=== PATIENT | female | born 1945 | race American Indian/Alaskan Native ===

== ENCOUNTER 2022-01-28 07:36 | Day surgery (SDC) | payer MEDICARE ==
[2022-01-28] MEDS ORDERED: ASPIRIN EC 325 MG TAB PO ONE (08:07)
[2022-01-28] MEDS ORDERED: SODIUM CHLORIDE 0.9% 500 ML 500 ML IV SCH (09:00)
[2022-01-28 09:21] LABS: Basophils % (Auto) 1.1 % (0.0-1.8); Eosinophils # (Auto) 0.3 K/mm3 (0.0-0.4); Eosinophils % (Auto) 7.6 % (0.0-4.3); Hematocrit 35.9 % (30.3-42.9); Hemoglobin 12.2 gm/dl (10.1-14.3); Lymphocytes # (Auto) 1.6 K/mm3 (1.2-5.4); Lymphocytes % (Auto) 40.8 % (13.4-35.0); Mean Corpuscular HGB Conc 34 % (30-34); Mean Corpuscular Volume 95 fl (79-97); Monocytes # (Auto) 0.4 K/mm3 (0.0-0.8); Monocytes % (Auto) 10.5 % (0.0-7.3); Platelet Count 109 K/mm3 (140-440); Red Blood Count 3.78 M/mm3 (3.65-5.03); Red Cell Distribution Width 14.2 % (13.2-15.2)
[2022-01-28 09:38] LABS: BUN/Creatinine Ratio 13; Blood Urea Nitrogen 22 mg/dL (7-17); Calcium 9.1 mg/dL (8.4-10.2); Hemolysis Index 234
[2022-01-28] MEDS ORDERED: HEPARIN 10,000 UNITS/10 ML VIAL ONE (10:56)
[2022-01-28] MEDS ORDERED: HEPARIN/NS 5000 UNIT/500ML 1,000 ML IR ONE (10:56)
--- NOTE | 2022-01-28 10:57 | Electrocardiograph Report ---
[facility] Test Date: 2022-01-28 Test Time: 09:40:05 Pat Name: ERNESTINE DOWLING Department: Room: Gender: F [employer] Team Member: JOSETTE : 1945 Requested By: RITCHIE GRIGSBY Order Number: [id number] Reading MD: Bebeto Fleming Measurements Intervals [place] Rate: 73 P: 60 ND: 275 QRS: 39 QRSD: 143 T: 84 QT: 465 QTc: 514 Interpretive Statements Sinus rhythm Prolonged ND interval Left bundle branch block No previous ECG available for comparison Electronically Signed On 01-28-2022 10:57:07 EDT by Bebeto Fleming
[2022-01-28] MEDS: LIDOCAINE (2%) 20 MG/1 ML VIAL 50 ML MDV INFILTRATI ONE ×2 (11:12→11:23)
[2022-01-28] MEDS: fentaNYL 100 MCG/2 ML INJ ONE ×2 (11:13→11:22)
[2022-01-28] MEDS: MIDAZOLAM 2 MG/2 ML INJ ONE ×2 (11:13→11:22)
--- NOTE | 2022-01-28 12:04 | Cardiac Catherization Report ---
DATE OF SERVICE: 01/28/2022 CARDIAC CATHETERIZATION REPORT REASON FOR PROCEDURE: Coronary artery disease. The patient is a 76-year-old woman with a history of coronary artery disease and known chronic total occlusion of the right coronary artery on medical therapy. She also has cardiomyopathy and cardiac defibrillator in situ. She was recommended for cardiac catheterization. Precardiac catheterization assessment demonstrated chronic kidney disease with a creatinine of 1.7. We discussed risks and benefits with the patient and the daughter who is at the bedside, who consented for the procedure. Prior to the procedure, we performed a judicious normal saline hydration, and the cardiac catheterization procedure was planned for coronaries only procedure using Visipaque. PROCEDURES: 1. Left heart catheterization. 2. Selective left and right coronary angiography. 3. Sedation time start 11:22, end 11:29. DESCRIPTION OF PROCEDURE: The patient was prepped and draped in a sterile fashion after informed consent. The right femoral artery was entered using Seldinger technique followed by placement of a 6-Japanese sheath. Selective left and right coronary angiography was performed using #4 left and right Padmini catheters. The catheters were then removed, sheath removed and hemostasis achieved using manual compression. The patient was returned to the postprocedure unit in stable condition. There were no complications. FINDINGS: HEMODYNAMICS: Left ventricular end-diastolic pressure was less than 20. Ascending aortic pressure was 144/63. There was no significant pressure gradient on pullback across the aortic valve. Left ventricular catheterization was performed for hemodynamics and no left ventricular angiography was performed due to concerns about contrast load. CORONARY ANGIOGRAPHY: There was mild ostial narrowing of the left main coronary artery, otherwise, the left main was angiographically normal. The left anterior descending artery was a very tortuous vessel, contained mild irregularities, no significant coronary lesions. The diagonal branches were similarly notable only for mild luminal irregularities. The circumflex artery and its obtuse marginal branches contained mild nonobstructive atherosclerosis. There was a 30% stenosis of the proximal vessel. The right coronary artery was a relatively small caliber, but dominant vessel. This vessel was completely occluded in its proximal segment. This was a long segment chronic total occlusion. There was faint L-R collateralization of a small diffusely diseased posterior descending branch of the distal right coronary artery. CONCLUSIONS: 1. Chronic total occlusion of the right coronary artery, unchanged based on prior cath reports. 2. No significant residual lesions in the left coronary system. 3. Total contrast used was 26 mL of Visipaque. RECOMMENDATIONS: Medical therapy and risk factor modification. Echocardiography as indicated for left ventricular function and valvular function assessment. TID: [id number] RECEIPT: [id number] KRIS MTDD
[2022-01-28] MEDS ORDERED: traMADol 50 MG TAB PO PRN (14:27)
[2022-01-28] MEDS ORDERED: SODIUM CHLORIDE 0.9% 1000 ML 1,000 ML IV SCH (14:30)
--- NOTE | 2022-01-28 14:31 | Discharge Summary ---
Short Stay Discharge Plan Activity: advance as tolerated Weight Bearing Status: Partial Weight Bearing Diet: low fat, low cholesterol, low salt, diabetic Wound: keep clean and dry Special Instructions: no heavy lifting (3 days) Follow up with: JULIANN ALLEN MD [Primary Care Provider] - 7 Days CLIF FAUST MD [Staff Physician] - 7 Days
[2022-01-28 16:19] VITALS: BP 147/65
== END 2022-01-28 07:37 | disposition home or self-care (01) ==
LOC: CATHLABREC 07:36
PROVIDERS: ATTEND Internal Medicine Cardiovascular Disease
DX: I25.10 Atherosclerotic heart disease of native coronary artery without angina pectoris (principal); I42.9 Cardiomyopathy, unspecified; E78.00 Pure hypercholesterolemia, unspecified; I10 Essential (primary) hypertension; Z87.442 Personal history of urinary calculi; Z87.440 Personal history of urinary (tract) infections; Z79.899 Other long term (current) drug therapy; Z95.0 Presence of cardiac pacemaker; Z98.890 Other specified postprocedural states; Z86.73 Personal history of transient ischemic attack (TIA), and cerebral infarction without residual deficits
CPT/HCPCS: 36415; 80048; 84132; 85025; 85610; 85730; 93005; 93458; C1894; J1644; J2250; J3010; J3490; J7040; 93454; Q9967